=== PATIENT | male | born 1980 ===

== ENCOUNTER 2023-05-16 09:20 | Emergency (ER) | payer OTHER ==
[~2023-05-16] VITALS: Ht 170.2 cm; Wt 81.8 kg
[2023-05-16 09:29] VITALS: TEMP 97.4
[2023-05-16 14:15] VITALS: BP 146/91; PULSE 63
== END 2023-05-16 14:25 | disposition short-term general hospital (02) ==
LOC: COL.ER 09:20
DX: H57.11 Ocular pain, right eye (principal); W22.8XXA Striking against or struck by other objects, initial encounter; Y93.89 Activity, other specified
CPT/HCPCS: J0690